=== PATIENT | male | born 1975 | race African-American/Black ===

== ENCOUNTER 2021-08-30 19:11 | Emergency (ER) | payer OTHER ==
[~2021-08-30] VITALS: Ht 167.6 cm; Wt 51.4 kg
[2021-08-30 19:16] VITALS: TEMP 98.4
[2021-08-30 20:00] LABS: PLATELET COUNT 290 K/uL (142-355)
[2021-08-30 20:09] LABS: POTASSIUM 3.5 mmol/L (3.6-5.2); SODIUM 131 mmol/L (136-145)
[2021-08-30 22:40] VITALS: BP 151/88
== END 2021-08-30 22:41 | disposition home or self-care (01) ==
LOC: ED 19:11
PROVIDERS: Emergency Medicine Emergency Medical Services
DX: R10.31 Right lower quadrant pain (principal); J18.9 Pneumonia, unspecified organism; Z72.0 Tobacco use
CPT/HCPCS: 36415; 80053; 80307; 81002; 82150; 83690; 83735; 84484; 85027; 85379; 87040; 87635; 93005; 96360; 96365; 96375; 99284; J0696; J1815; J1885; U0003